=== PATIENT | male | born 1970 | race Two or more races ===

== ENCOUNTER 2018-06-27 13:07 | Inpatient (IN) ==
[2018-06-27] MEDS ORDERED: ZOFRAN INJ 4 MG VIAL IVP ONE (13:43)
[2018-06-27] MEDS ORDERED: DILAUDID INJ IVP ONE (13:47)
[2018-06-27] MEDS ORDERED: NS 1000 ML 1,000 ML IV ONE (13:48)
[2018-06-27 13:52] LABS: BASOPHILS % (AUTO) 0.5 % (0.2-1.0); EOSINOPHILS # (AUTO) 0.1 x10^3/uL (0.0-0.2); EOSINOPHILS % (AUTO) 1.3 % (0.9-2.9); HEMATOCRIT 45.2 % (42.0-54.0); HEMOGLOBIN 15.7 g/dL (13.5-18.0); LYMPHOCYTES # (AUTO) 1.8 X10^3/uL (1.3-2.9); LYMPHOCYTES % (AUTO) 22.8 % (21.0-51.0); MEAN CORPUSCULAR HEMOGLOBIN 29.8 pg (27.0-34.0); MEAN CORPUSCULAR HGB CONC 34.8 g/dL (33.0-35.0); MEAN CORPUSCULAR VOLUME 85.7 fL (80.0-100.0); MONOCYTES # (AUTO) 0.5 x10^3/uL (0.3-0.8); NEUTROPHILS # (AUTO) 5.3 x10^3/uL (2.2-4.8); NEUTROPHILS % (AUTO) 68.4 % (42.0-75.0); PLATELET COUNT 222 X10^3/uL (150.0-450.0); RED BLOOD COUNT 5.28 X10^6/uL (4.7-6.0); RED CELL DISTRIBUTION WIDTH 13.8 % (11.6-16.5); WHITE BLOOD COUNT 7.7 X10^3/uL (3.6-10.0)
[2018-06-27] MEDS ORDERED: ZOFRAN INJ 4 MG VIAL ONE (13:52)
[2018-06-27] MEDS ORDERED: NS 1000 ML 1,000 ML ONE (13:52)
[2018-06-27] MEDS ORDERED: DILAUDID INJ ONE (13:53)
[2018-06-27 14:07] LABS: ALANINE AMINOTRANSFERASE 51 Units/L (12-78); ALBUMIN 4.3 g/dL (3.4-5.0); ALKALINE PHOSPHATASE 142 Units/L (46-116); AMYLASE 51 Units/L (25-115); ASPARTATE AMINO TRANSFERASE 36 Units/L (15-37); BLOOD UREA NITROGEN 18 mg/dL (7-18); CALCIUM 9.3 mg/dL (8.5-10.1); CARBON DIOXIDE 31.3 mmol/L (21-32); CHLORIDE 99 mmol/L (98-107); COR NA(FOR HYPERGLY) 140 mmol/L (136-145); LIPASE 137 Units/L (73-393); SODIUM 138 mmol/L (136-145); TOTAL PROTEIN 9.8 g/dL (6.4-8.2); eGFR NON BLACK RACES > 60 (>60)
--- NOTE | 2018-06-27 14:28 | DR.GENAD ---
HPI Time Seen Time Seen by Provider: 06/27/18 13:35 PCP Primary Care Physician: radha Complaint/Symptoms Chief Complaint Doctors Comments: Abdominal pain since yesterday. Location is not specific but more intense in lower abdomen. There was no associated trauma. He has nausea with vomiting. He denies recent travel or consuming poorly prepared food items. Chief Complaint:: pt stated he has been having lower abd pain since lunch yesterday. Nurses notes reviewed Nurses Notes Review: Yes Source History Provided: Patient Mode of Arrival Mode of Arrival: Ambulatory Timing Onset of Chief Complaint: 06/27/18 PMH PMH Past Medical History: No Past Surgical History: No Family History History of Family Medical Conditions: No Social History Does patient currently use any type of tobacco product: No Have you used tobacco products in the last 12 months: No Type of Tobacco Use: None Does any household member use tobacco: No Alcohol Use: None Do you use any recreational Drugs:: No Lives With: Family Lives Where: Home infectious screening In the last 2 months have you had wt loss of >10#?: NO Have you had fever, night sweats or hemotysis?: No Have you traveled outside the country in the last 6 months?: No Isolation: Standard ROS Review of Systems Constitutional: No Symptoms Reported Eyes: No Symptoms Reported ENTM: No Symptoms Reported Respiratoy: No Symptoms Reported Cardiovascular: No Symptoms Reported Gastrointestinal/Abdominal: Abdominal Pain, Nausea and Vomiting Genitourinary: No Symptoms Reported Neurological: No Symptoms Reported Musculoskeletal: No Symptoms Reported Integumentary: No Symptoms Reported Hematologic/Lymphatic: No Symptoms Reported Endocrine: No Symptoms Reported Psychiatric: No Symptoms Reported All Other Systems: Reviewed and Negative PE Vital Signs Vitals: Temperature 98.5 F Pulse Rate 99 Respiratory Rate 16 Blood Pressure [Right Arm] 112/61 Blood Pressure [Left Arm] 107/55 Blood Pressure 136/82 O2 Sat by Pulse Oximetry 100 General Limitations: No Limitations General Appearance: Alert Head Head Exam: Normal Inspection and Atraumatic Eyes Eye exam: Normal Appearance, PERRL and EOMI ENT ENT Exam: Normal Exam, Normal Oropharynx and Mucous Membranes Moist Neck Neck Exam: Normal Inspection and Full ROM Chest Chest Inspection: Normal Inspection and Symmetric Chest Wall Rise Respiratory Respiratory Exam: Normal Lung Sounds Bilat Cardiovascular Cardiovascular Exam: Regular Rate, Normal Rhythm, +S1 and +S2 Abdominal Exam Abdominal Exam: Normal Inspection, Normal Bowel Sounds, Soft and Tenderness ( mild in upper abdomen but more tender in lower abdomen. There is no rebound) Extremities Extremities Exam: Normal Inspection and Full ROM Back Back Exam: Normal Inspection Neurologic Neurological Exam: Alert and Oriented X3 Psychiatric Psychiatric Exam: Normal Affect and Normal Mood Skin Skin Exam: Warm COURSE Reevaluation 1st: Improved Education/Counseling Education/Counseling: Patient, Education and Counseling Educated On: Treatment, Diagnosis, Prognosis and Needs for Follow Up ROR Labs Reviewed Result Diagrams: 06/27/18 13:30 06/27/18 13:30 Laboratory: WBC 7.7 X10^3/uL (3.6-10.0) 06/27/18 13:30 RBC 5.28 X10^6/uL (4.7-6.0) 06/27/18 13:30 Hgb 15.7 g/dL (13.5-18.0) 06/27/18 13:30 Hct 45.2 % (42.0-54.0) 06/27/18 13:30 MCV 85.7 fL (80.0-100.0) 06/27/18 13:30 MCH 29.8 pg (27.0-34.0) 06/27/18 13:30 MCHC 34.8 g/dL (33.0-35.0) 06/27/18 13:30 RDW 13.8 % (11.6-16.5) 06/27/18 13:30 Plt Count 222 X10^3/uL (150.0-450.0) 06/27/18 13:30 MPV 9.0 fL (7.4-11.0) 06/27/18 13:30 Neut % (Auto) 68.4 % (42.0-75.0) 06/27/18 13:30 Lymph % (Auto) 22.8 % (21.0-51.0) 06/27/18 13:30 [place] % (Auto) 7.0 % (0.0-13.0) 06/27/18 13:30 Eos % (Auto) 1.3 % (0.9-2.9) 06/27/18 13:30 Baso % (Auto) 0.5 % (0.2-1.0) 06/27/18 13:30 Neut # (Auto) 5.3 x10^3/uL (2.2-4.8) H 06/27/18 13:30 Lymph # (Auto) 1.8 X10^3/uL (1.3-2.9) 06/27/18 13:30 [place] # (Auto) 0.5 x10^3/uL (0.3-0.8) 06/27/18 13:30 Eos # (Auto) 0.1 x10^3/uL (0.0-0.2) 06/27/18 13:30 Baso # (Auto) 0.0 X10^3/uL (0.0-0.1) 06/27/18 13:30 Absolute Nucleated RBC 0.1 /100WBC 06/27/18 13:30 Sodium 138 mmol/L (136-145) 06/27/18 13:30 Corrected Sodium 140 mmol/L (136-145) 06/27/18 13:30 Potassium 3.6 mmol/L (3.5-5.1) 06/27/18 13:30 Chloride 99 mmol/L (98-107) 06/27/18 13:30 Carbon Dioxide 31.3 mmol/L (21-32) 06/27/18 13:30 BUN 18 mg/dL (7-18) 06/27/18 13:30 Creatinine 1.00 mg/dL (0.70-1.30) 06/27/18 13:30 Est GFR (MDRD) Af Amer > 60 (>60) 06/27/18 13:30 Est GFR (MDRD) Non-Af > 60 (>60) 06/27/18 13:30 Glucose 193 mg/dL (65-99) H 06/27/18 13:30 Calcium 9.3 mg/dL (8.5-10.1) 06/27/18 13:30 Corrected Calcium TNP 06/27/18 13:30 Total Bilirubin 1.20 mg/dL (0.2-1.0) H 06/27/18 13:30 AST 36 Units/L (15-37) 06/27/18 13:30 ALT 51 Units/L (12-78) 06/27/18 13:30 Alkaline Phosphatase 142 Units/L (46-116) H 06/27/18 13:30 Total Protein 9.8 g/dL (6.4-8.2) H 06/27/18 13:30 Albumin 4.3 g/dL (3.4-5.0) 06/27/18 13:30 Globulin 5.5 g/dL (2.5-4.5) H 06/27/18 13:30 Albumin/Globulin Ratio 0.8 Ratio (1.1-2.1) L 06/27/18 13:30 Amylase 51 Units/L (25-115) 06/27/18 13:30 Lipase 137 Units/L (73-393) 06/27/18 13:30 Other Results Comments: CT ABD/PELVIS: this could represent a recurrent or low-grade chronic obstruction. XRAY XRAY Interpreted by: Radiologist XRAY Findings: CT ABD: Mild partial SBO which is not significantly changed from 12/17/13. Diagnosis Discharge Problem: Abdominal pain, Nausea & vomiting, Partial small bowel obstruction
--- NOTE | 2018-06-27 16:00 | CT ---
Indication: Pain Exam: CT abdomen and pelvis with contrast. Comparison: 12/17/2013. Technique: Axial spiral images were obtained from lung bases through the pubic symphysis after admini stration of IV and oral contrast. Automated dose control was utilized. Findings: There is mild linear scarring along the lung bases posteriorly which is unchanged. The live r is normal size with fatty replacement throughout. The gallbladder, pancreas , and bile ducts are no rmal . The spleen is unremarkable. There is motion artifact throughout the exam. There several loops of mildly dilated small bowel along the left abdomen with multiple loops of normal appearing distal i leum along the right lower quadrant extending to the terminal ileum with the transition point not wel l delineated . This was seen on the prior study and is not significantly changed. There is no wall th ickening seen . The mesentery is unremarkable . There is no adenopathy or ascites. The bladder is unr emarkable . The appendix is grossly unremarkable . There is no pericecal inflammation . The adrenals are normal . The kidneys are normal size and function normally with no hydronephrosis or renal stones . The bones are intact. Impression: Motion artifact limiting the exam. Mid partial small bowel obstruction which is not significantly changed from the prior study. This cou ld represent a recurrent or low-grade chronic obstruction. The point of the obstruction is not well d elineated. Mild fatty replacement throughout the liver. Reported By:
--- NOTE | 2018-06-27 17:41 | DR.GENAD ---
HPI Time Seen Time Seen by Provider: 06/27/18 13:35 PCP Primary Care Physician: radha Complaint/Symptoms Chief Complaint:: pt stated he has been having lower abd pain since lunch yesterday. Nurses notes reviewed Nurses Notes Review: Yes Source History Provided: Patient Mode of Arrival Mode of Arrival: Ambulatory Timing Onset of Chief Complaint: 06/27/18 PMH PMH Past Medical History: No Past Surgical History: No Family History History of Family Medical Conditions: No Social History Does patient currently use any type of tobacco product: No Have you used tobacco products in the last 12 months: No Type of Tobacco Use: None Does any household member use tobacco: No Alcohol Use: None Do you use any recreational Drugs:: No Lives With: Family Lives Where: Home infectious screening In the last 2 months have you had wt loss of >10#?: NO Have you had fever, night sweats or hemotysis?: No Have you traveled outside the country in the last 6 months?: No Isolation: Standard PE Vital Signs Vitals: Temperature 98.5 F Pulse Rate [Left Brachial] 50 Pulse Rate 99 Respiratory Rate 16 Blood Pressure [Right Arm] 112/61 Blood Pressure [Left Arm] 125/64 Blood Pressure 136/82 O2 Sat by Pulse Oximetry 97 ROR Labs Reviewed Result Diagrams: 06/27/18 13:30 06/27/18 13:30 Laboratory: WBC 7.7 X10^3/uL (3.6-10.0) 06/27/18 13:30 RBC 5.28 X10^6/uL (4.7-6.0) 06/27/18 13:30 Hgb 15.7 g/dL (13.5-18.0) 06/27/18 13:30 Hct 45.2 % (42.0-54.0) 06/27/18 13:30 MCV 85.7 fL (80.0-100.0) 06/27/18 13:30 MCH 29.8 pg (27.0-34.0) 06/27/18 13:30 MCHC 34.8 g/dL (33.0-35.0) 06/27/18 13:30 RDW 13.8 % (11.6-16.5) 06/27/18 13:30 Plt Count 222 X10^3/uL (150.0-450.0) 06/27/18 13:30 MPV 9.0 fL (7.4-11.0) 06/27/18 13:30 Neut % (Auto) 68.4 % (42.0-75.0) 06/27/18 13:30 Lymph % (Auto) 22.8 % (21.0-51.0) 06/27/18 13:30 [place] % (Auto) 7.0 % (0.0-13.0) 06/27/18 13:30 Eos % (Auto) 1.3 % (0.9-2.9) 06/27/18 13:30 Baso % (Auto) 0.5 % (0.2-1.0) 06/27/18 13:30 Neut # (Auto) 5.3 x10^3/uL (2.2-4.8) H 06/27/18 13:30 Lymph # (Auto) 1.8 X10^3/uL (1.3-2.9) 06/27/18 13:30 [place] # (Auto) 0.5 x10^3/uL (0.3-0.8) 06/27/18 13:30 Eos # (Auto) 0.1 x10^3/uL (0.0-0.2) 06/27/18 13:30 Baso # (Auto) 0.0 X10^3/uL (0.0-0.1) 06/27/18 13:30 Absolute Nucleated RBC 0.1 /100WBC 06/27/18 13:30 Sodium 138 mmol/L (136-145) 06/27/18 13:30 Corrected Sodium 140 mmol/L (136-145) 06/27/18 13:30 Potassium 3.6 mmol/L (3.5-5.1) 06/27/18 13:30 Chloride 99 mmol/L (98-107) 06/27/18 13:30 Carbon Dioxide 31.3 mmol/L (21-32) 06/27/18 13:30 BUN 18 mg/dL (7-18) 06/27/18 13:30 Creatinine 1.00 mg/dL (0.70-1.30) 06/27/18 13:30 Est GFR (MDRD) Af Amer > 60 (>60) 06/27/18 13:30 Est GFR (MDRD) Non-Af > 60 (>60) 06/27/18 13:30 Glucose 193 mg/dL (65-99) H 06/27/18 13:30 Calcium 9.3 mg/dL (8.5-10.1) 06/27/18 13:30 Corrected Calcium TNP 06/27/18 13:30 Total Bilirubin 1.20 mg/dL (0.2-1.0) H 06/27/18 13:30 AST 36 Units/L (15-37) 06/27/18 13:30 ALT 51 Units/L (12-78) 06/27/18 13:30 Alkaline Phosphatase 142 Units/L (46-116) H 06/27/18 13:30 Total Protein 9.8 g/dL (6.4-8.2) H 06/27/18 13:30 Albumin 4.3 g/dL (3.4-5.0) 06/27/18 13:30 Globulin 5.5 g/dL (2.5-4.5) H 06/27/18 13:30 Albumin/Globulin Ratio 0.8 Ratio (1.1-2.1) L 06/27/18 13:30 Amylase 51 Units/L (25-115) 06/27/18 13:30 Lipase 137 Units/L (73-393) 06/27/18 13:30 Diagnosis Discharge Problem: Abdominal pain, Nausea & vomiting, Partial small bowel obstruction
[2018-06-27] MEDS: NS 1000 ML 1,000 ML IV SCH (17:42)
[2018-06-27] MEDS: MORPHINE SULFATE INJ 2 MG INJ IVP PRN (21:40)
[2018-06-28] MEDS: PHENERGAN INJ 25 MG IV PRN ×3 (01:07→20:33)
[2018-06-28] MEDS: NS 1000 ML 1,000 ML IV SCH ×4 (01:08→18:06)
[2018-06-28] MEDS: MORPHINE SULFATE INJ 2 MG INJ IVP PRN ×5 (01:20→20:45)
[2018-06-28 05:23] LABS: BASOPHILS % (AUTO) 0.4 % (0.2-1.0); EOSINOPHILS # (AUTO) 0.1 x10^3/uL (0.0-0.2); EOSINOPHILS % (AUTO) 1.6 % (0.9-2.9); HEMOGLOBIN 13.5 g/dL (13.5-18.0); LYMPHOCYTES # (AUTO) 1.7 X10^3/uL (1.3-2.9); MEAN CORPUSCULAR HEMOGLOBIN 29.8 pg (27.0-34.0); MEAN CORPUSCULAR HGB CONC 34.6 g/dL (33.0-35.0); MEAN CORPUSCULAR VOLUME 86.2 fL (80.0-100.0); MEAN PLATELET VOLUME 8.8 fL (7.4-11.0); MONOCYTES # (AUTO) 0.6 x10^3/uL (0.3-0.8); MONOCYTES % (AUTO) 8.8 % (0.0-13.0); NEUTROPHILS # (AUTO) 4.6 x10^3/uL (2.2-4.8); NEUTROPHILS % (AUTO) 65.2 % (42.0-75.0); PLATELET COUNT 187 X10^3/uL (150.0-450.0); RED BLOOD COUNT 4.53 X10^6/uL (4.7-6.0); RED CELL DISTRIBUTION WIDTH 13.5 % (11.6-16.5)
[2018-06-28 05:43] LABS: ALANINE AMINOTRANSFERASE 39 Units/L (12-78); ALKALINE PHOSPHATASE 112 Units/L (46-116); ASPARTATE AMINO TRANSFERASE 27 Units/L (15-37); BLOOD UREA NITROGEN 17 mg/dL (7-18); CALCIUM 8.2 mg/dL (8.5-10.1); CHLORIDE 102 mmol/L (98-107); COR NA(FOR HYPERGLY) 138 mmol/L (136-145); CREATININE 0.86 mg/dL (0.70-1.30); SODIUM 137 mmol/L (136-145); eGFR NON BLACK RACES > 60 (>60)
[2018-06-28 05:44] LABS: ALBUMIN 3.4 g/dL (3.4-5.0); TOTAL PROTEIN 7.9 g/dL (6.4-8.2)
--- NOTE | 2018-06-28 10:32 | RAD ---
HISTORY: NG tube placement Study: KUB Comparison: 06/28/2018. Findings: A nasogastric tube is in place with the tip at the level of the greater curvature junction of the gas tric fundus and body. The side hole is seen to be about 4.5 cm distal to the EG junction. There is mi ld gaseous distention of the stomach and small bowel loops. Air and stool are present involving the c olon. Findings are compatible with a partial small bowel obstruction. No opaque stone is seen. Osseou s structures are intact IMPRESSION: NG tube description as above. Findings compatible with partial small bowel obstruction. Reported By:
[2018-06-28] MEDS: CIPRO IV 400 MG PREMIX* 400 MG/200 ML IV.SOLN. IV SCH ×2 (10:37→20:31)
--- NOTE | 2018-06-28 10:41 | RAD ---
HISTORY: Bowel obstruction Study: KUB done 06/28/2018 at 9:02 a.[address] Comparison: CT scan of the abdomen and pelvis done 06/27/2018 at 3:26 p.m.. Findings: Gaseous distention of small bowel loops are present mid epigastric region. Air and stool present thro ughout the colon. Findings have the appearance of a partial small bowel obstruction. No opaque stone is seen. Osseous structures are intact. IMPRESSION: Partial small bowel obstruction. Reported By:
--- NOTE | 2018-06-28 18:31 | DR.H&P ---
H&P - History & Physical for Day of: H&P Date: 06/27/18 - Chief Complaint Chief Complaint: ABDOMINAL PAIN, N/V - History of Present Illness History of Present Illness: 48 HM ER ADMISSION WITH CO ABDOMINAL PAIN N/V WORSE OVER PAST 2-3 DAYS. PT STATES HAS HAD SAME SYMPTOMS, WITH SBO IN 2013. PT DENIES ANY ABDOMINAL SURGERIES, DIARRHEA OR BLOOD IN STOOL, DENIES FEVER. PT HAD CT ABD IN ER WITH SBO, POSSIBLE CHRONIC. PT ADMITTED FOR TREATMENT AND EVALUATION, PT NPO - Past Medical History Past Medical History: denies: Coronary Artery Disease, Hypertension - Past Surgical History Surgical History: No History - Social History Does patient currently use any type of tobacco product: No Have you used tobacco products in the last 12 months: No Type of Tobacco Use: None Does any household member use tobacco: No Alcohol Use: None Drug Use: None - Medications Home Medications: No Known Drug Allergies Allergy (Verified 06/27/18 13:09) - Review of Systems Constitutional: Malaise ENT: No Symptoms Reported Respiratory: No Symptoms Reported Cardiovascular: No Symptoms Reported Gastrointestinal: Nausea, Vomiting, Abdominal Pain Genitourinary: No Symptoms Reported Skin: No Symptoms Reported Neurological: No Symptoms Reported - Physical Exam Vital Signs: Temperature 99.2 F Pulse Rate [Left Brachial] 69 Pulse Rate 99 Respiratory Rate 20 Blood Pressure [Right Arm] 112/61 Blood Pressure [Left Arm] 126/72 Blood Pressure 136/82 O2 Sat by Pulse Oximetry 95 Oriented: Normal Eyes: Normal Ear: Normal Nose: Normal Throat: Dry Respiratory: Clear Throughout Cardiovascular: Normal : Normal Auscultation: Bowel Sounds: Decreased Tenderness: Diffuse, RLQ, LUQ Skin: Normal Musculoskeletal: Normal Psychiatric: Normal Mood Description: Calm Speech Pattern: Clear, Appropriate - Assessment/Plan (1) Small bowel obstruction Status: Acute Plan: ADMIT, LACTIC ACID LEVEL. ADMISSION LABS, PAIN AND NAUSEA CONTROL. IV HYDRATION, VERIFY HOME MEDS. BP MONITORING, REPEAT AM KUB (2) Abdominal pain Qualifiers: Abdominal location: lower abdomen, unspecified Qualified Code(s): R10.30 - Lower abdominal pain, unspecified Status: Acute (3) Nausea & vomiting Qualifiers: Vomiting type: unspecified Vomiting Intractability: non-intractable Qualified Code(s): R11.2 - Nausea with vomiting, unspecified Status: Acute - Allergies Allergies/Adverse Reactions: Allergies Allergy/AdvReac Type Severity Reaction Status Date / Time No Known Drug Allergies Allergy Verified 06/27/18 13:09
--- NOTE | 2018-06-28 18:33 | PCM.PROG ---
Progress Note - Progress Note for Day of Date of Exam: 06/28/18 - Subjective Subjective: 48 HM ER ADMISSION ON 06/27 WITH SBO. PT CONTINUES TO CO NAUSEA W/O VOMITING THIS AM, ABDOMINAL TENDERNESS. KUB CONTINUES WITH PARTIAL SBO. NG TUBE AT LIS, PAIN CONTROL, NPO, GENTLE HYDRATION. REPEAT AM LABS, KUB, IV ATBX - Past Medical Family Social History Past Med/Fam/Surg Hx: No changes since H&P Allergies: Allergies No Known Drug Allergies Allergy (Verified 06/27/18 13:09) - Review of Systems ROS: No change since H&P - Vital Signs and I&O's Vital Signs: Temperature 99.2 F Pulse Rate [Left Brachial] 69 Pulse Rate 99 Respiratory Rate 20 Blood Pressure [Right Arm] 112/61 Blood Pressure [Left Arm] 126/72 Blood Pressure 136/82 O2 Sat by Pulse Oximetry 95 Intake and Output: Intake & Output 06/26/18 06/27/18 06/28/18 06/29/18 11:59 11:59 11:59 11:59 Intake Total 850 / 850 0 / 0 Output Total 150 / 150 Balance 700 / 700 0 / 0 - Physical Exam Oriented: Normal Eyes: Normal Ear: Normal Nose: Normal Throat: Dry Respiratory: Normal Cardiovascular: Normal : Normal Auscultation: Bowel Sounds: Decreased Tenderness: Diffuse, RLQ, LUQ Skin: Normal Musculoskeletal: Normal Psychiatric: Normal Mood Description: Calm Speech Pattern: Clear, Appropriate - Laboratory and Diagnostics Result Diagrams: 06/28/18 04:45 06/28/18 04:45 Labs: Laboratory WBC 7.0 X10^3/uL (3.6-10.0) 06/28/18 04:45 RBC 4.53 X10^6/uL (4.7-6.0) L 06/28/18 04:45 Hgb 13.5 g/dL (13.5-18.0) D 06/28/18 04:45 Hct 39.0 % (42.0-54.0) L 06/28/18 04:45 MCV 86.2 fL (80.0-100.0) 06/28/18 04:45 MCH 29.8 pg (27.0-34.0) 06/28/18 04:45 MCHC 34.6 g/dL (33.0-35.0) 06/28/18 04:45 RDW 13.5 % (11.6-16.5) 06/28/18 04:45 Plt Count 187 X10^3/uL (150.0-450.0) 06/28/18 04:45 MPV 8.8 fL (7.4-11.0) 06/28/18 04:45 Neut % (Auto) 65.2 % (42.0-75.0) 06/28/18 04:45 Lymph % (Auto) 24.0 % (21.0-51.0) 06/28/18 04:45 [place] % (Auto) 8.8 % (0.0-13.0) 06/28/18 04:45 Eos % (Auto) 1.6 % (0.9-2.9) 06/28/18 04:45 Baso % (Auto) 0.4 % (0.2-1.0) 06/28/18 04:45 Neut # (Auto) 4.6 x10^3/uL (2.2-4.8) 06/28/18 04:45 Lymph # (Auto) 1.7 X10^3/uL (1.3-2.9) 06/28/18 04:45 [place] # (Auto) 0.6 x10^3/uL (0.3-0.8) 06/28/18 04:45 Eos # (Auto) 0.1 x10^3/uL (0.0-0.2) 06/28/18 04:45 Baso # (Auto) 0.0 X10^3/uL (0.0-0.1) 06/28/18 04:45 Absolute Nucleated RBC 0.0 /100WBC 06/28/18 04:45 Sodium 137 mmol/L (136-145) 06/28/18 04:45 Corrected Sodium 138 mmol/L (136-145) 06/28/18 04:45 Potassium 3.6 mmol/L (3.5-5.1) 06/28/18 04:45 Chloride 102 mmol/L (98-107) 06/28/18 04:45 Carbon Dioxide 28.0 mmol/L (21-32) 06/28/18 04:45 BUN 17 mg/dL (7-18) 06/28/18 04:45 Creatinine 0.86 mg/dL (0.70-1.30) 06/28/18 04:45 Est GFR (MDRD) Af Amer > 60 (>60) 06/28/18 04:45 Est GFR (MDRD) Non-Af > 60 (>60) 06/28/18 04:45 Glucose 161 mg/dL (65-99) H 06/28/18 04:45 Lactic Acid 0.8 mmol/L (0.4-2.0) 06/28/18 08:48 Calcium 8.2 mg/dL (8.5-10.1) L 06/28/18 04:45 Corrected Calcium TNP 06/28/18 04:45 Total Bilirubin 1.00 mg/dL (0.2-1.0) 06/28/18 04:45 AST 27 Units/L (15-37) 06/28/18 04:45 ALT 39 Units/L (12-78) 06/28/18 04:45 Alkaline Phosphatase 112 Units/L (46-116) 06/28/18 04:45 Total Protein 7.9 g/dL (6.4-8.2) 06/28/18 04:45 Albumin 3.4 g/dL (3.4-5.0) 06/28/18 04:45 Globulin 4.5 g/dL (2.5-4.5) 06/28/18 04:45 Albumin/Globulin Ratio 0.8 Ratio (1.1-2.1) L 06/28/18 04:45 Amylase 51 Units/L (25-115) 06/27/18 13:30 Lipase 137 Units/L (73-393) 06/27/18 13:30 - Plan (1) Small bowel obstruction Status: Acute Plan: NG TUBE AT LIS. AMLABS, PAIN AND NAUSEA CONTROL. IV HYDRATION, VERIFY HOME MEDS. BP MONITORING, REPEAT AM KUB (2) Abdominal pain Status: Acute Qualifiers: Abdominal location: lower abdomen, unspecified Qualified Code(s): R10.30 - Lower abdominal pain, unspecified (3) Nausea & vomiting Status: Acute Qualifiers: Vomiting type: unspecified Vomiting Intractability: non-intractable Qualified Code(s): R11.2 - Nausea with vomiting, unspecified
[2018-06-28 19:47] LABS: BILIRUBIN,URINE NEGATIVE (NEGATIVE); BLOOD/HEMOGLOBIN,URINE NEGATIVE (NEGATIVE); GLUCOSE, URINE 1+ (NEGATIVE); KETONES,URINE 3+ (NEGATIVE); LEUKOCYTE ESTERASE ,URINE 1+ (NEGATIVE); NITRITES,URINE NEGATIVE (NEGATIVE); PROTEIN,URINE 2+ (NEGATIVE); UROBILINOGEN,URINE NORMAL (NORMAL)
[2018-06-28 19:57] LABS: APPEARANCE,URINE CLEAR (CLEAR); COLOR,URINE AMBER (YELLOW)
[2018-06-28 20:09] LABS: AMORPHOUS SEDIMENT,UR TRACE /HPF (NEGATIVE); BACTERIA,URINE NEGATIVE /HPF (NEGATIVE); MUCUS,URINE MODERATE /HPF (NEGATIVE); RBC,URINE NONE SEEN /HPF (NONE SEEN); SQUAMOUS EPITHELIAL CELL,UR RARE /HPF (NEGATIVE)
[2018-06-29] MEDS: NS 1000 ML 1,000 ML IV SCH ×2 (01:43→10:50)
[2018-06-29] MEDS: PHENERGAN INJ 25 MG IV PRN (03:00)
[2018-06-29] MEDS: MORPHINE SULFATE INJ 2 MG INJ IVP PRN (03:01)
[2018-06-29 06:37] LABS: BASOPHILS % (AUTO) 0.6 % (0.2-1.0); EOSINOPHILS # (AUTO) 0.1 x10^3/uL (0.0-0.2); EOSINOPHILS % (AUTO) 2.2 % (0.9-2.9); HEMATOCRIT 35.5 % (42.0-54.0); HEMOGLOBIN 12.2 g/dL (13.5-18.0); LYMPHOCYTES # (AUTO) 1.3 X10^3/uL (1.3-2.9); MEAN CORPUSCULAR HEMOGLOBIN 29.9 pg (27.0-34.0); MEAN CORPUSCULAR HGB CONC 34.3 g/dL (33.0-35.0); MEAN PLATELET VOLUME 8.8 fL (7.4-11.0); MONOCYTES # (AUTO) 0.5 x10^3/uL (0.3-0.8); MONOCYTES % (AUTO) 9.7 % (0.0-13.0); NEUTROPHILS # (AUTO) 3.3 x10^3/uL (2.2-4.8); NEUTROPHILS % (AUTO) 62.5 % (42.0-75.0); PLATELET COUNT 158 X10^3/uL (150.0-450.0); RED BLOOD COUNT 4.08 X10^6/uL (4.7-6.0); RED CELL DISTRIBUTION WIDTH 13.3 % (11.6-16.5); WHITE BLOOD COUNT 5.3 X10^3/uL (3.6-10.0)
[2018-06-29 07:21] LABS: ALANINE AMINOTRANSFERASE 29 Units/L (12-78); ALBUMIN 2.9 g/dL (3.4-5.0); ALKALINE PHOSPHATASE 89 Units/L (46-116); ASPARTATE AMINO TRANSFERASE 19 Units/L (15-37); BLOOD UREA NITROGEN 14 mg/dL (7-18); CALCIUM 7.7 mg/dL (8.5-10.1); CARBON DIOXIDE 27.3 mmol/L (21-32); CHLORIDE 105 mmol/L (98-107); COR CA(FOR HYPOALB) 8.6 mg/dL (8.5-10.1); COR NA(FOR HYPERGLY) 140 mmol/L (136-145); CREATININE 0.74 mg/dL (0.70-1.30); SODIUM 140 mmol/L (136-145); TOTAL PROTEIN 7.1 g/dL (6.4-8.2); eGFR NON BLACK RACES > 60 (>60)
[2018-06-29] MEDS: CIPRO IV 400 MG PREMIX* 400 MG/200 ML IV.SOLN. IV SCH (08:55)
[2018-06-29] MEDS ORDERED: MORPHINE SULFATE INJ 2 MG INJ IVP PRN (09:28)
--- NOTE | 2018-06-29 10:59 | RAD ---
Examination: KUB History: SBO Comparison 06/28/2018 Findings: There is minimal distention of scattered segments of small and large bowel. The NG tube is not definitely identified. There is significant improvement in the small bowel distention. A 1.5 cm m etallic foreign densities projected over the pelvis. Impression: Interval improvement in intestinal distention. No new intestinal abnormality is now demon strated. Metallic foreign density projected over the central pelvis. Reported By:
[2018-06-29 16:49] VITALS: BP 121/67
== END 2018-06-29 17:55 | disposition home or self-care (01) | DRG 390 ==
LOC: ER 13:07 → MED/SURG 13:07
PROVIDERS: ADMIT Internal Medicine; ATTEND Internal Medicine
DX: R10.30 Lower abdominal pain, unspecified; R11.2 Nausea with vomiting, unspecified; R10.84 Generalized abdominal pain; K56.690 Other partial intestinal obstruction; I25.10 Atherosclerotic heart disease of native coronary artery without angina pectoris; I10 Essential (primary) hypertension
CPT/HCPCS: 36415; 74000; 74018; 74177; 80053; 81001; 82150; 83605; 83690; 85025; 96365; 96374; 96375; 99231; 99238; 99283; 99284; A4222; G0378; J0744; J1170; J2270; J2405; J2550; J7030

== ENCOUNTER 2021-03-24 19:51 | Inpatient (IN) ==
--- NOTE | 2021-03-24 22:12 | DR.CP ---
HPI Time Seen Time Seen by Provider: 03/24/21 21:57 PCP Primary Care Physician: CASPER HPI Comment HPI Comment: PATIENT EVALUATED IN EMERGENCY ROOM ON 03/22/2021 FOR ELEVATED LIVER ENZYMES WITH A NEGATIVE LIVER ULTRASOUND AND ACUTE ABDOMINAL SERIES. NOW CO MPLAINS OF LOWER ABDOMINAL PAIN X 3 DAYS. DENIES FEVER, URINARY SYMPTOMS, NAUSEA, EMESIS OR DIARRHEA. Complaint Chief Complaint Doctor Comments: LOWER ABDOMINAL PAIN Chief Complaint:: HEART, NAUSEA Self Treatment fo Chief Complaint: LEFT FROM HOSPITAL YESTERDAY COVID-19 Coronavirus risk:travel/contact w/high risk person: No Has patient experienced Coronavirus symptoms: No Source History Provided: Patient Mode of Arrival Mode of Arrival: Ambulatory Timing Onset of Chief Complaint: 03/22/21 Duration Duration: Constant PMH PMH Past Medical History: Yes Past Surgical History: No Surgical History: No History Family History History of Family Medical Conditions: No Social History Alcohol Use: None Do you use any recreational Drugs:: No Lives With: Spouse Lives Where: Home Travel Risk Coronavirus risk:travel/contact w/high risk person: No Has patient experienced Coronavirus symptoms: No Infectious screening In the last 2 months have you had wt loss of >10#?: NO Have you had fever, night sweats or hemotysis?: No Have you traveled outside the country in the last 6 months?: No Isolation: Standard ROS Review of Systems Constitutional: No Symptoms Reported Eyes: No Symptoms Reported ENTM: No Symptoms Reported Respiratoy: No Symptoms Reported Cardiovascular: No Symptoms Reported Gastrointestinal/Abdominal: See HPI and Abdominal Pain Genitourinary: No Symptoms Reported Neurological: No Symptoms Reported Musculoskeletal: No Symptoms Reported Integumentary: No Symptoms Reported Hematologic/Lymphatic: No Symptoms Reported Endocrine: No Symptoms Reported Psychiatric: No Symptoms Reported All Other Systems: Reviewed and Negative PE Vitals Vitals: Temperature 98.7 F Pulse Rate 62 Respiratory Rate 20 Blood Pressure [Right Arm] 109/59 Blood Pressure 139/73 O2 Sat by Pulse Oximetry 99 General General Appearance: Alert and In No Apparent Distress (MODERATE) Head Head Exam: Normal Inspection and Atraumatic Eyes Eye exam: Normal Appearance and PERRL Chest Chest Inspection: Normal Inspection Respiratory Respiratory Exam: Normal Lung Sounds Bilat Cardiovascular Cardiovascular Exam: Regular Rate and Normal Rhythm Abdominal Exam Abdominal Exam: Normal Inspection, Tenderness (PERIUMBILICAL RIGHT LOWER QUAD,), Guarding and Rebound Extremities Extremities Exam: Normal Inspection and Full ROM Neurologic Neurological Exam: Alert and Oriented X3 Skin Skin Exam: Warm and Dry MDM Additional Information Findings: SMALL BOWEL OBSTRUCTION, ACUTE COLITIS, URETEROLITHIASIS Differential Diagnosis Differential Diagnosis: Pancreatitis COURSE Treatment Treatment: IV NORMAL SALINE 1 LITER BOLUS, ZOFRAN 4MG, MORPHINE 4MG IV, PROTONIX 40MG IV Reevaluation 1st: Improved Consultation Call Returned: 00:25 Consultation Comments: DISCUSSED FINDINGS WITH DR MAR, FOR INPATIENT ADMIT ROR Labs Reviewed Laboratory Results Reviewed?: Yes Result Diagrams: 03/24/21 22:26 03/24/21 22: Laboratory: WBC 7.9 X10^3/uL (3.6-10.0) 03/24/21 22: RBC 4.71 X10^6/uL (4.7-6.0) 03/24/21 22: Hgb 13.3 g/dL (13.5-18.0) L D 03/24/21 22: Hct 38.7 % (42.0-54.0) L 03/24/21 22: MCV 82.1 fL (80.0-100.0) 03/24/21 22: MCH 28.3 pg (27.0-34.0) 03/24/21 22: MCHC 34.4 g/dL (33.0-35.0) 03/24/21 22: RDW 13.8 % (11.6-16.5) 03/24/21 22: Plt Count 192 X10^3/uL (150.0-450.0) 03/24/21 22: MPV 8.5 fL (7.4-11.0) 03/24/21 22: Neut % (Auto) 67.2 % (42.0-75.0) 03/24/21 22: Lymph % (Auto) 23.0 % (21.0-51.0) 03/24/21 22: Henry % (Auto) 6.9 % (0.0-13.0) 03/24/21 22: Eos % (Auto) 2.5 % (0.9-2.9) 03/24/21 22: Baso % (Auto) 0.4 % (0.2-1.0) 03/24/21 22:26 Neut # (Auto) 5.3 x10^3/uL (2.2-4.8) H 03/24/21 22:26 Lymph # (Auto) 1.8 X10^3/uL (1.3-2.9) 03/24/21 22:26 Henry # (Auto) 0.5 x10^3/uL (0.3-0.8) 03/24/21 22:26 Eos # (Auto) 0.2 x10^3/uL (0.0-0.2) 03/24/21 22:26 Baso # (Auto) 0.0 X10^3/uL (0.0-0.1) 03/24/21 22: Absolute Nucleated RBC 0.0 /100WBC 03/24/21 22: PT 13.8 SECONDS (11.8-14.3) 03/24/21 22:37 INR Target Range - 03/24/21 22:37 INR 1.11 (0.8-1.3) 03/24/21 22:37 Sodium 136 mmol/L (136-145) 03/24/21 22:26 Corrected Sodium 139 mmol/L (136-145) 03/24/21 22:26 Potassium 3.6 mmol/L (3.5-5.1) 03/24/21 22: Chloride 100 mmol/L (98-107) 03/24/21 22: Carbon Dioxide 28.4 mmol/L (21-32) 03/24/21 22: BUN 9 mg/dL (7-18) 03/24/21 22: Creatinine 0.80 mg/dL (0.70-1.30) 03/24/21 22:26 Est GFR (MDRD) Af Amer > 60 (>60) 03/24/21 22: Est GFR (MDRD) Non-Af > 60 (>60) 03/24/21 22: Glucose 241 mg/dL (65-99) H 03/24/21 22: Lactic Acid 1.2 mmol/L (0.4-2.0) 03/24/21 22: Calcium 9.0 mg/dL (8.5-10.1) 03/24/21 22:26 Corrected Calcium TNP 03/24/21 22:26 Total Bilirubin 0.50 mg/dL (0.2-1.0) 03/24/21 22:26 AST 20 Units/L (15-37) 03/24/21 22:26 ALT 30 Units/L (12-78) 03/24/21 22:26 Alkaline Phosphatase 125 Units/L (46-116) H 03/24/21 22:26 Total Protein 8.4 g/dL (6.4-8.2) H 03/24/21 22:26 Albumin 3.6 g/dL (3.4-5.0) 03/24/21 22:26 Globulin 4.8 g/dL (2.5-4.5) H 03/24/21 22:26 Albumin/Globulin Ratio 0.8 Ratio (1.1-2.1) L 03/24/21 22:26 Amylase 40 Units/L (25-115) 03/24/21 22:26 Lipase 138 Units/L (73-393) 03/24/21 22:26 Specimen Type Clean catch urine 03/25/21 00:26 Urine Color Straw (YELLOW) 03/25/21 00:26 Urine Appearance Clear (CLEAR) 03/25/21 00:26 Urine pH 5.0 (5.0 - 8.0) 03/25/21 00:26 Ur Specific [place] 1.005 (1.000-1.030) 03/25/21 00:26 Urine Protein 1+ (NEGATIVE) 03/25/21 00:26 Urine Glucose (UA) 3+ (NEGATIVE) 03/25/21 00:26 Urine Ketones Negative (NEGATIVE) 03/25/21 00: Urine Occult Blood Negative (NEGATIVE) 03/25/21 00: Urine Nitrite Negative (NEGATIVE) 03/25/21 00: Urine Bilirubin Negative (NEGATIVE) 03/25/21 00:26 Urine Urobilinogen Normal (NORMAL) 03/25/21 00:26 Ur Leukocyte Esterase Negative (NEGATIVE) 03/25/21 00:26 Urine RBC None seen /HPF (0-3) 03/25/21 00:26 Urine WBC None seen /HPF (0-5) 03/25/21 00:26 Ur Squamous Epith Cells Negative /HPF (NEGATIVE) 03/25/21 00:26 Urine Bacteria Negative /HPF (NEGATIVE) 03/25/21 00:26 Ur Culture Indicated? No/not indicated 03/25/21 00:26 XRAY XRAY Interpreted by: Radiologist (ABDOMINAL PELVIC CT WITH IV CONTRAST C/W A MODERAT GRADE PARTIAL SMALL BOWEL OBSTRUCTION WITH TRANSITION POINT APPEAR TO BE LOCATED IN THE DISTAL SMALL BOWEL OBSTRUCTION WITH TRANSITION POINT APPEAR TO BE LOCATED IN THE DISTAL SMALL BOWEL IN THE REGION OF THE ILEUM) Opioid Opioid Risk Tool Age ([place]aran box if 16-45): No History of Preadolescent Sexual Abuse: No Total: 0 Total Score Risk Category: Low Risk Copyright: Dimitri KRAMER predicting aberrant behaviors Diagnosis Discharge Problem: Small bowel obstruction
[2021-03-24] MEDS ORDERED: NS 1000 ML 1,000 ML IV ONE (22:13)
[2021-03-24] MEDS ORDERED: ZOFRAN INJ 4 MG VIAL IVP STA (22:16)
[2021-03-24] MEDS ORDERED: MORPHINE SULFATE INJ 4 MG IVP STA (22:17)
[2021-03-24] MEDS ORDERED: MORPHINE SULFATE INJ 4 MG ONE (22:23)
[2021-03-24] MEDS ORDERED: ZOFRAN INJ 4 MG VIAL ONE (22:23)
[2021-03-24] MEDS ORDERED: NS 1000 ML 1,000 ML ONE (22:23)
[2021-03-24] MEDS ORDERED: NS 100 ML IV 100 ML IV ONE (22:30)
[2021-03-24 22:49] LABS: BASOPHILS % (AUTO) 0.4 % (0.2-1.0); EOSINOPHILS # (AUTO) 0.2 x10^3/uL (0.0-0.2); EOSINOPHILS % (AUTO) 2.5 % (0.9-2.9); HEMATOCRIT 38.7 % (42.0-54.0); HEMOGLOBIN 13.3 g/dL (13.5-18.0); LYMPHOCYTES # (AUTO) 1.8 X10^3/uL (1.3-2.9); MEAN CORPUSCULAR HEMOGLOBIN 28.3 pg (27.0-34.0); MEAN CORPUSCULAR HGB CONC 34.4 g/dL (33.0-35.0); MEAN CORPUSCULAR VOLUME 82.1 fL (80.0-100.0); MEAN PLATELET VOLUME 8.5 fL (7.4-11.0); MONOCYTES # (AUTO) 0.5 x10^3/uL (0.3-0.8); MONOCYTES % (AUTO) 6.9 % (0.0-13.0); NEUTROPHILS # (AUTO) 5.3 x10^3/uL (2.2-4.8); NEUTROPHILS % (AUTO) 67.2 % (42.0-75.0); PLATELET COUNT 192 X10^3/uL (150.0-450.0); RED BLOOD COUNT 4.71 X10^6/uL (4.7-6.0); RED CELL DISTRIBUTION WIDTH 13.8 % (11.6-16.5); WHITE BLOOD COUNT 7.9 X10^3/uL (3.6-10.0)
[2021-03-24 23:14] LABS: ALANINE AMINOTRANSFERASE 30 Units/L (12-78); ALBUMIN 3.6 g/dL (3.4-5.0); ALKALINE PHOSPHATASE 125 Units/L (46-116); AMYLASE 40 Units/L (25-115); ASPARTATE AMINO TRANSFERASE 20 Units/L (15-37); BLOOD UREA NITROGEN 9 mg/dL (7-18); CARBON DIOXIDE 28.4 mmol/L (21-32); CHLORIDE 100 mmol/L (98-107); COR NA(FOR HYPERGLY) 139 mmol/L (136-145); LACTIC ACID 1.2 mmol/L (0.4-2.0); LIPASE 138 Units/L (73-393); SODIUM 136 mmol/L (136-145); TOTAL PROTEIN 8.4 g/dL (6.4-8.2); eGFR NON BLACK RACES > 60 (>60)
--- NOTE | 2021-03-24 23:58 | CT ---
STUDY: CT ABDOMEN AND PELVIS WITH IV CONTRASTCOMPARISON: NoneTECHNIQUE: Axial images were acquired of the abdomen and pelvis with IV contrast. Sagittal and coronal reformatted images were provided. All images were reviewed in a variety of windows and levels.RADIATION REDUCTION TECHNIQUE: Automated exposure control, adjustment of the mA and/or kV according to patient size, or iterative reconstruction techniques were used.HISTORY: HEART, NAUSEAFINDINGS:LOWER THORAX: The visualized lower lung zones are clear. The heart size is within normal limits. There is no evidence of a pericardial effusion.LIVER: No intrahepatic focal lesions are seen. No evidence of intrahepatic or extrahepatic duct dilation.GALLBLADDER: The gallbladder is unremarkable.SPLEEN: The spleen enhances homogenously and is unremarkable.PANCREAS: The pancreas enhances homogenously and is unremarkable.AGRENAL GLANDS: The adrenal glands enhance homogenously and are unremarkable.: The kidneys enhance homogenously. Their collecting system is of normal caliber.URINARY BLADDER: The urinary bladder is unremarkable. There are no soft tissue masses seen in the urinary bladder.VESSELS: The abdominal aorta is normal in size without evidence of aneurysm or dissection. The celiac artery, superior mesenteric artery, [place] renal arteries, and inferior mesenteric artery are patent.GI: The stomach is unremarkable. Marked dilated loops of small bowel are seen which contain fecal material consistent with a partial moderate grade small bowel obstruction. Transition point is not clearly seen but appears to be located in the distal small bowel. The appendix is normal. Colon appears unremarkable. There are no inflammatory changes seen in the right lower quadrant to suggest secondary signs of acute appendicitis.LYMPHNODES AND MESSENTERY: There is no evidence of retroperitoneal lymphadenopathy.BONES: The visualized bones demonstrate degenerative changes. There are no concerning lytic or blastic lesions identified.IMPRESSION:Findings are consistent with a moderate grade partial small bowel obstruction with transition point appear to be located in the distal small bowel in the region of the ileum. Additional imaging features suggest possibility of small-bowel mesenteric ischemia. This may be mechanical in etiology.Electronically signed by: Jhoan Morley (March 24, 2021 23:56:45)
[2021-03-25] MEDS ORDERED: PROTONIX INJ 40 MG VIAL IVP STA (00:44)
[2021-03-25 00:46] LABS: BILIRUBIN,URINE NEGATIVE (NEGATIVE); BLOOD/HEMOGLOBIN,URINE NEGATIVE (NEGATIVE); GLUCOSE, URINE 3+ (NEGATIVE); KETONES,URINE NEGATIVE (NEGATIVE); LEUKOCYTE ESTERASE ,URINE NEGATIVE (NEGATIVE); NITRITES,URINE NEGATIVE (NEGATIVE); PROTEIN,URINE 1+ (NEGATIVE); UROBILINOGEN,URINE NORMAL (NORMAL)
[2021-03-25 00:55] LABS: APPEARANCE,URINE CLEAR (CLEAR); COLOR,URINE STRAW (YELLOW)
[2021-03-25 00:56] LABS: BACTERIA,URINE NEGATIVE /HPF (NEGATIVE); RBC,URINE NONE SEEN /HPF (0-3); SQUAMOUS EPITHELIAL CELL,UR NEGATIVE /HPF (NEGATIVE)
[2021-03-25] MEDS ORDERED: ZOFRAN INJ 4 MG VIAL IVP PRN (00:56)
[2021-03-25] MEDS ORDERED: MORPHINE SULFATE INJ 4 MG IVP PRN (00:56)
[2021-03-25] MEDS ORDERED: NS 1000 ML 1,000 ML IV SCH (01:00)
[2021-03-25] MEDS ORDERED: PROTONIX INJ 40 MG VIAL ONE (01:21)
[2021-03-25 02:32] VITALS: BMI 26.3
[2021-03-25] MEDS: NS 1000 ML 1,000 ML IV SCH ×4 (07:54→23:55)
[2021-03-25] MEDS: PROTONIX INJ 40 MG VIAL IVP SCH ×2 (09:30→21:09)
--- NOTE | 2021-03-25 10:06 | RAD ---
HISTORYSmall bowel obstructionSTUDYKUBCOMPARISONCT abdomen pelvis 03/24/2021FINDINGSThe abdominal gas pattern is nonspecific. There is a single minimally dilated small bowel loop in the left upper quadrant. Gas and stool is present within the colon. No abnormal masses or abnormal calcifications are identified. Regional skeleton is intact.IMPRESSIONSingle persistent loop of mildly dilated small bowel in the left upper quadrant. Findings could still be consistent with a partial small bowel obstruction.Electronically signed by: VASQUEZ CARABALLO (March 25, 2021 10:04:34)
[2021-03-25] MEDS ORDERED: NS 500 ML IV 500 ML IV ONE (11:28)
[2021-03-25] MEDS ORDERED: DIPRIVAN VIAL 20 ML ONE (11:28)
[2021-03-26] MEDS: NS 1000 ML 1,000 ML IV SCH ×2 (06:28→08:57)
[2021-03-26] MEDS: PROTONIX INJ 40 MG VIAL IVP SCH (09:00)
--- NOTE | 2021-03-26 10:35 | RAD ---
HISTORYabd pain-small nowel obstructionSTUDYKUBCOMPARISONKUB from 1 day prior.TECHNIQUESupine KUBFINDINGSNonspecific bowel gas pattern. Stable mildly dilated loop of small bowel in the left marifer abdomen. No definite pneumatosis, free air, or portal venous gas. Calcifications in the pelvis are likely phleboliths. Lung bases are excluded.IMPRESSIONNo significant change.Electronically signed by: Goldy Baez (March 26, 2021 10:33:18)
[2021-03-26 12:49] VITALS: BP 123/60
== END 2021-03-26 14:35 | disposition home or self-care (01) | DRG 390 ==
LOC: ER 20:06 → MED/SURG 03-25 00:56
PROVIDERS: ADMIT Surgery; ATTEND Surgery
DX: R11.2 Nausea with vomiting, unspecified; K29.00 Acute gastritis without bleeding; K56.690 Other partial intestinal obstruction; E11.65 Type 2 diabetes mellitus with hyperglycemia; R94.5 Abnormal results of liver function studies; Z20.822 Contact with and (suspected) exposure to COVID-19; K21.9 Gastro-esophageal reflux disease without esophagitis